=== PATIENT | male | born 1945 | race Caucasian/White ===

== ENCOUNTER 2022-10-07 22:22 | Inpatient (IN) | payer MEDICARE, MEDICAID ==
[~2022-10-07] VITALS: Ht 200.7 cm; Wt 70.3 kg
[2022-10-07 23:33] LABS: BASOPHILS % 0.4 % (0.0-2.0); EOSINOPHILS % 0.8 % (0.0-5.0); HEMATOCRIT. 46.3 % (42.0-52.0); HEMOGLOBIN. 15.1 g/dL (14.0-18.0); LYMPHOCYTES % 15.9 % (20.0-50.0); MEAN CORPUSCULAR HEMOGLOBIN 28.5 pg (28.0-32.0); MEAN CORPUSCULAR VOLUME 87.7 fL (80.0-94.0); MONOCYTES % 12.1 % (2.0-8.0); NEUTROPHILS % 70.8 % (40.0-76.0); RED BLOOD CELL COUNT 5.28 mill/uL (4.7-6.1); RED CELL DISTRIBUTION WIDTH 17.7 % (11.6-14.6)
[2022-10-07 23:42] LABS: CHLORIDE 98 mEq/L (98-107)
[2022-10-08 00:45] LABS: MEAN PLATELET VOLUME 10.2 fl (7.4-10.4); PLATELET 131 x1000/uL (130-400)
[2022-10-08] MEDS ORDERED: ACETAMINOPHEN 325MG TABLET PO PRN (09:45)
[2022-10-08] MEDS ORDERED: ONDANSETRON HCL 4MG/2ML INJ IV PRN (09:45)
[2022-10-08] MEDS: FUROSEMIDE 40MG/4ML VIAL IVP SCH ×2 (10:09→16:47)
[2022-10-08 16:00] VITALS: BP 100/73
[2022-10-08 16:22] VITALS: BP 100/73
[2022-10-08 20:00] VITALS: BP 133/86
[2022-10-09] VITALS: BP 144/96
[2022-10-09 04:00] VITALS: BP 154/95
[2022-10-09 07:43] VITALS: BP 147/91
[2022-10-09] MEDS: FUROSEMIDE 40MG/4ML VIAL IVP SCH ×2 (08:22→17:45)
[2022-10-09 11:53] VITALS: BP 140/86
[2022-10-09] MEDS ORDERED: POTASSIUM CHLORIDE 20MEQ TABLET SR PO SCH (13:00)
[2022-10-09 16:00] VITALS: BP 145/88
[2022-10-09 20:00] VITALS: BP 127/89
[2022-10-10] VITALS: BP 144/93
[2022-10-10 04:00] VITALS: BP 118/80
[2022-10-10 08:00] VITALS: BP 141/92
[2022-10-10] MEDS: FUROSEMIDE 40MG/4ML VIAL IVP SCH ×2 (08:08→17:45)
[2022-10-10 12:00] VITALS: BP 124/74
[2022-10-10 16:00] VITALS: BP 116/80
[2022-10-10 16:06] LABS: INR 1.3
[2022-10-10 20:00] VITALS: BP 126/86
[2022-10-10] MEDS: SILDENAFIL CITRATE 20MG TABLET PO SCH (21:24)
[2022-10-11] VITALS: BP 118/60
[2022-10-11 04:00] VITALS: BP 116/71
[2022-10-11] MEDS: SILDENAFIL CITRATE 20MG TABLET PO SCH ×2 (05:23→13:07)
[2022-10-11 08:00] VITALS: BP 105/64
[2022-10-11] MEDS ORDERED: SODIUM BICARBONATE 4% (2.4MEQ) 5ML VIAL IV ONE (08:58)
[2022-10-11] MEDS ORDERED: POTASSIUM CHLORIDE 20MEQ TABLET SR PO NR (10:45)
[2022-10-11] MEDS: FUROSEMIDE 40MG/4ML VIAL IVP SCH (10:58)
[2022-10-11 12:00] VITALS: BP 99/53
[2022-10-11] MEDS ORDERED: FURO-151 MT (16:00)
[2022-10-11] MEDS ORDERED: POTA-205 MT (16:00)
[2022-10-11] MEDS ORDERED: LOSA25TA26 MT (16:16)
[2022-10-11] MEDS ORDERED: REV20 PO (16:16)
[2022-10-11] MEDS ORDERED: CARV3.1242 MT (16:16)
== END 2022-10-11 17:17 | disposition home or self-care (01) | DRG 291 ==
LOC: ER 22:22 → 8WST 10-08 04:33
PROVIDERS: ADMIT Internal Medicine; ATTEND Internal Medicine
PROC: 0W993ZZ Drainage of Right Pleural Cavity, Percutaneous Approach (ICD-10-PCS; principal; 2022-10-11)
DX: I11.0 Hypertensive heart disease with heart failure (principal); I50.23 Acute on chronic systolic (congestive) heart failure; N17.0 Acute kidney failure with tubular necrosis; J96.00 Acute respiratory failure, unspecified whether with hypoxia or hypercapnia; E87.1 Hypo-osmolality and hyponatremia; E44.1 Mild protein-calorie malnutrition; Z68.1 Body mass index [BMI] 19.9 or less, adult; I42.9 Cardiomyopathy, unspecified; Z20.822 Contact with and (suspected) exposure to COVID-19; R74.01 Elevation of levels of liver transaminase levels; I27.20 Pulmonary hypertension, unspecified; I48.91 Unspecified atrial fibrillation; R07.9 Chest pain, unspecified
CPT/HCPCS: 32555; 36415; 71045; 76604; 80048; 80053; 82040; 83615; 83880; 84484; 85025; 87426; 87804; 88108; 93005; 93306; 99285; C9803; J1940; J3490

== ENCOUNTER 2022-11-19 15:28 | Emergency (ER) | payer MEDICARE, MEDICAID ==
[~2022-11-19] VITALS: Ht 182.9 cm; Wt 77.0 kg
[~2022-11-19 15:28] MED LIST: CARV3.1242 MT; FURO-151 MT; LOSA25TA26 MT; POTA-205 MT; REV20 PO
[2022-11-19 15:52] VITALS: BP 129/77
[2022-11-19 19:18] LABS: HEMATOCRIT. 44.3 % (42.0-52.0); HEMOGLOBIN. 14.3 g/dL (14.0-18.0); MEAN CORPUSCULAR HEMOGLOBIN 27.5 pg (28.0-32.0); MEAN CORPUSCULAR VOLUME 85.4 fL (80.0-94.0); MEAN PLATELET VOLUME 9.7 fl (7.4-10.4); PLATELET 135 x1000/uL (130-400); RED BLOOD CELL COUNT 5.18 mill/uL (4.7-6.1); RED CELL DISTRIBUTION WIDTH 17.8 % (11.6-14.6)
[2022-11-19 19:21] LABS: INR 1.2; PROTHROMBIN TIME 12.3 sec (9.6-11.0)
[2022-11-19 19:26] LABS: CHLORIDE 106 mEq/L (98-107)
[2022-11-19 20:13] LABS: PLATELET ESTIMATE NORMAL
[2022-11-20] MEDS ORDERED: IMOD MT (00:11)
== END 2022-11-20 00:38 | disposition home or self-care (01) ==
LOC: ER 15:28
DX: R19.7 Diarrhea, unspecified (principal); I10 Essential (primary) hypertension
CPT/HCPCS: 36415; 80053; 85025; 99283

== ENCOUNTER 2023-09-07 15:09 | Emergency (ER) | payer MEDICARE, MEDICAID ==
[~2023-09-07] VITALS: Ht 190.5 cm; Wt 81.0 kg
[~2023-09-07 15:09] MED LIST changes: +IMOD MT
[2023-09-07 15:21] VITALS: O2SAT 98
[2023-09-07 16:11] VITALS: TEMP 98.1
[2023-09-07 16:36] LABS: HEMATOCRIT. 37.5 % (42.0-52.0); HEMOGLOBIN. 12.7 g/dL (14.0-18.0); MEAN CORPUSCULAR HEMOGLOBIN 29.8 pg (28.0-32.0); MEAN CORPUSCULAR HGB CONC 33.8 g/dL (31.0-37.0); MEAN CORPUSCULAR VOLUME 88.3 fL (80.0-94.0); MEAN PLATELET VOLUME 11.7 fl (7.4-10.4); PLATELET 164 x1000/uL (130-400); RED BLOOD CELL COUNT 4.25 mill/uL (4.7-6.1); RED CELL DISTRIBUTION WIDTH 13.3 % (11.6-14.6); WHITE BLOOD COUNT 6.6 x1000/uL (4.5-11.0)
[2023-09-07 16:38] LABS: DIFFERENTIAL COMMENT 1
[2023-09-07 16:48] LABS: ALANINE AMINOTRANSFERASE < 7 IU/L (10-49); ALBUMIN 3.8 g/dL (3.2-4.8); ASPARTATE AMINOTRANSFERASE 21 IU/L (<34); CALCIUM 8.6 mg/dL (8.7-10.4); CARBON DIOXIDE 26 mEq/L (21-32); CHLORIDE 105 mEq/L (98-107); GLUCOSE 116 mg/dL (70-105); POTASSIUM 3.4 mEq/L (3.5-5.1); PROTEIN TOTAL 6.5 g/dL (6.0-8.3); SODIUM 139 mEq/L (136-145); TROPONIN I HIGH SENSITIVITY 13 ng/L (3.0-53); UREA NITROGEN BLOOD 13 mg/dL (9-23)
[2023-09-07 19:05] LABS: TROPONIN I HIGH SENSITIVITY 13 ng/L (3.0-53)
[2023-09-07 19:10] LABS: PARTIAL THROMBOPLASTIN TIME 31.9 sec (23.4-31.0)
[2023-09-07 21:10] LABS: PLATELET ESTIMATE NORMAL
[2023-09-08 01:00] VITALS: BP 165/69; PULSE 101; RESP 16
== END 2023-09-08 01:19 ==
LOC: ER 15:09 → CANBEDREQ 09-09 10:16
DX: R07.89 Other chest pain (principal); E78.00 Pure hypercholesterolemia, unspecified; I10 Essential (primary) hypertension
CPT/HCPCS: 36415; 71045; 80053; 83735; 83880; 84484; 85025; 93005; 99291